=== PATIENT | male | born 1975 | race Caucasian/White ===

== ENCOUNTER 2018-06-27 14:00 | Emergency (ER) | payer OTHER ==
[2018-06-27 14:07] VITALS: TEMP 98.2; BMI 35.5
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
--- NOTE | 2018-06-27 15:48 | PDOC ---
Attending Attestation - Resident Resident Name: Robson Gaines - ED Attending Attestation I have performed the following: I have examined & evaluated the patient, The case was reviewed & discussed with the resident, I agree w/resident's findings & plan, Exceptions are as noted - HPI HPI: 06/27/18 17:50 The patient is a 42 year old male, with no significant past medical history, who presents to the emergency department with eye pain and redness after getting oven turkey cleaner into his eyes today at work. 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 He reportedly rinsed his eyes thoroughly with water prior to coming to the ED. He reports some blurry vision, but states he can see clearly enough to read the signs in the exam room. The patient denies chest pain, shortness of breath, headache and dizziness. The patient denies fever, chills, nausea, vomit, diarrhea and constipation. The patient denies dysuria, frequency, urgency and hematuria. Allergies: NKDA - Physicial Exam PE: 06/27/18 16:00 eye: EOMI: injected sclera - Medical Decision Making 06/27/18 16:00 42-year-old gentleman status post exposure of oven clearner to his eyes Patient had initially flush his eyes at work, will continue to irrigate with bilateral Mikael lens, will check patient's pH and corneal integrity with flouricene
[2018-06-27] MEDS ORDERED: ACETAMINOPHEN 500 MG TABLET (FP) PO ONE (18:33)
[2018-06-27] MEDS ORDERED: ACETAMINOPHEN 325 MG TABLET (FP) ONE (18:45)
[2018-06-27 19:13] VITALS: BP 149/91; PULSE 70
== END 2018-06-27 19:13 | disposition home or self-care (01) ==
LOC: JERFT 14:00 → JER 14:00
DX: T54.3X1A Toxic effect of corrosive alkalis and alkali-like substances, accidental (unintentional), initial encounter (principal); X58.XXXA Exposure to other specified factors, initial encounter; Y93.89 Activity, other specified; Y92.9 Unspecified place or not applicable; I10 Essential (primary) hypertension
CPT/HCPCS: 99282-25

== ENCOUNTER 2018-11-25 23:43 | Emergency (ER) | payer OTHER ==
[2018-11-25 23:49] VITALS: BP 160/83; PULSE 78; TEMP 98; BMI 35.8
[2018-11-26] MEDS ORDERED: DIPHTH,PERTUSS(ACELL),TET 0.5 ML DISP.SYRIN IM ONE ×2 (00:28→00:31)
[2018-11-26] MEDS ORDERED: BACITRACIN 15 GM TUBE TOPICAL OINTMENT TP ONE (00:29)
[2018-11-26] MEDS ORDERED: BACITRACIN 0.9 GM PACKET ONE (00:31)
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
== END 2018-11-26 00:45 | disposition home or self-care (01) ==
LOC: JER 23:43
PROC: 3E0234Z Introduction of Serum, Toxoid and Vaccine into Muscle, Percutaneous Approach (ICD-10-PCS; principal; 2018-11-25)
PROC: 2W2FX4Z Dressing of Left Hand using Bandage (ICD-10-PCS; 2018-11-25)
DX: T23.292A Burn of second degree of multiple sites of left wrist and hand, initial encounter (principal); X10.2XXA Contact with fats and cooking oils, initial encounter; Y93.G3 Activity, cooking and baking; Y92.511 Restaurant or cafe as the place of occurrence of the external cause; Y99.0 Civilian activity done for income or pay
CPT/HCPCS: 90715; 99281-25

== ENCOUNTER 2023-05-30 16:56 | Emergency (ER) | payer SELFPAY ==
[2023-05-30 17:11] VITALS: RESP 18; TEMP 98.3; BMI 35.5
[2023-05-30 20:37] LABS: BASO % 0.5 % (0-2.0); HEMATOCRIT 45.3 % (35.4-49); HEMOGLOBIN 15.6 GM/dL (11.7-16.9); LYMPH % 19.5 % (8-40); MCH 30.3 pg (25.7-33.7); MCHC 34.5 g/dl (32.0-35.9); MONO % 6.5 % (3.8-10.2); NEUT % 72.5 % (42.8-82.8); PLATELET COUNT 246 10^3/uL (134-434); RBC 5.15 M/mm3 (4.00-5.60); RDW 13.2 % (11.9-15.9); WHITE BLOOD COUNT 6.6 K/mm3 (4.0-10.0)
[2023-05-30 20:50] LABS: POTASSIUM 3.7 mmol/L (3.5-5.1)
[2023-05-30 20:52] LABS: CALCIUM 8.9 mg/dL (8.5-10.1)
[2023-05-30 20:53] LABS: ALBUMIN 4.3 g/dl (3.4-5.0); BLOOD UREA NITROGEN 12.9 mg/dL (7-18); MAGNESIUM 2.1 mg/dL (1.8-2.4)
[2023-05-30 20:56] LABS: CREATININE 0.9 mg/dL (0.55-1.3); PHOSPHOROUS 2.8 mg/dL (2.5-4.9)
[2023-05-30 20:57] LABS: BILIRUBIN,TOTAL 0.6 mg/dL (0.2-1); TOT PROT 7.4 g/dl (6.4-8.2)
[2023-05-30 23:21] VITALS: BP 163/73; PULSE 83
== END 2023-05-30 23:22 | disposition home or self-care (01) ==
LOC: JER 16:56
DX: R00.2 Palpitations (principal); R07.89 Other chest pain; Z20.822 Contact with and (suspected) exposure to COVID-19
CPT/HCPCS: 0241U-QW; 36415; 71045-TC-FY; 80053; 83735; 84100; 84443; 84484; 85025; 93005; 93010; 99285-25

== ENCOUNTER 2024-12-09 10:15 | Emergency (ER) | payer OTHER ==
[2024-12-09] MEDS ORDERED: ADENOSINE 6 MG/2 ML VIAL IVPUSH ONE (10:23)
[2024-12-09 10:43] LABS: ABSOLUTE IMMATURE GRANULOCYTES 0.02 x10^3/uL (0.0-0.031); BASOPHILS # 0.05 x10^3/uL (0.01-0.08); EOSINOPHIL % 1.9 % (0.8-7.0); EOSINOPHILS # 0.16 x10^3/uL (0.04-0.54); HEMATOCRIT 46.2 % (40.1-51.0); HEMOGLOBIN 15.7 g/dL (13.7-17.5); MEAN PLT VOLUME 9.7 fl (9.4-12.4); MONOCYTE # 0.66 x10^3/uL (0.30-0.82); MONOCYTE % 7.9 % (5.3-12.2); PLATELET COUNT 258 x10^3/uL (163-337); RDW 12.7 % (12.1-15.9)
[2024-12-09 10:49] VITALS: TEMP 98; BMI 34.8
[2024-12-09 10:51] LABS: INR 1.06 (0.83-1.09); PROTHROMBIN TIME (PATIENT) 11.5 SEC (9.7-13.0)
[2024-12-09 10:53] LABS: ACTIVATED PTT 33.7 SECONDS (25.2-36.5)
[2024-12-09 11:18] LABS: POTASSIUM 3.8 mmol/L (3.5-5.1)
[2024-12-09 11:21] LABS: BLOOD UREA NITROGEN 16.5 mg/dL (7-18); CALCIUM 9.7 mg/dL (8.5-10.1)
[2024-12-09 11:22] LABS: ALBUMIN 4.4 g/dl (3.4-5.0)
[2024-12-09 11:25] LABS: CREATININE 1.1 mg/dL (0.55-1.3)
[2024-12-09 11:27] LABS: BILIRUBIN,TOTAL 0.7 mg/dL (0.2-1); TOT PROT 7.7 g/dl (6.4-8.2)
[2024-12-09] MEDS: SODIUM CHLORIDE 0.9% 1000 ML INFUS.BAG IV ONE (11:47)
[2024-12-09 14:08] VITALS: BP 124/72; PULSE 72; RESP 16
== END 2024-12-09 14:14 | disposition home or self-care (01) ==
LOC: JER 10:15
DX: I47.10 Supraventricular tachycardia, unspecified (principal); R00.2 Palpitations; R07.9 Chest pain, unspecified; R06.02 Shortness of breath
CPT/HCPCS: 36415; 71045-TC-FY; 80053; 83735; 84484; 85025; 85610; 85730; 93005; 93010; 99285-25